=== PATIENT | male | born 1960 | race Caucasian/White ===

== ENCOUNTER 2024-05-28 14:28 | Outpatient (OUT) | payer MEDICARE, SELFPAY ==
--- NOTE | 2024-05-28 14:45 | XR_ITS ---
The [address] [address] Patient Name: SUSAN MARX MRN: [id number] date: 1960 Sex: M Assigned Patient Location: RAD Current Patient Location: RAD Accession/Order Number: [id number] Exam Date: 05/28/2024 14:55 Report Date: 05/28/2024 15:20 At the request of: GINNA ZUÑIGA Procedure: XR chest 2V EXAMINATION: XR chest 2V HISTORY: Acute Bronchitis, Chest Pain COMPARISON: XR chest 10/16/2023 FINDINGS: LUNGS: Underexpanded lungs with mild strandy and patchy opacity within left lung base. VASCULATURE: No increased pulmonary vasculature. PLEURA: No pneumothorax, effusion, or pleural thickening. CARDIAC: No cardiomegaly or cardiac silhouette abnormality. MEDIASTINUM: No visible mass or adenopathy. BONES: No fracture or visible bone lesion. OTHER: Negative. XR/XR chest 2V IMPRESSION: 1. Mild left basilar infiltrates versus atelectasis; new since prior study. 2. Hyperexpanded lungs suggestive of COPD. Electronically authenticated by: MALAIKA BAXTER Date: 05/28/2024 15:20
== END 2024-05-28 14:29 | disposition home or self-care (01) ==
LOC: RAD 14:32
PROVIDERS: PCP Family Medicine; Visit Provider Internal Medicine
DX: J20.9 Acute bronchitis, unspecified (principal); R07.9 Chest pain, unspecified; R91.8 Other nonspecific abnormal finding of lung field
CPT/HCPCS: 71046